=== PATIENT | male | born 1945 | race Caucasian/White ===

== ENCOUNTER → 2020-08-16 | Outpatient (CLI) | payer OTHER ==
--- NOTE | 2020-08-16 15:03 | CT ---
EXAMINATION TYPE: CT abdomen pelvis wo con DATE OF EXAM: 08/16/2020 COMPARISON: None HISTORY: 75 year-old male N39.0, Frequent UTIs CT DLP: 1170.6 mGycm. Automated exposure control for dose reduction was used. TECHNIQUE: Contiguous axial scanning of the abdomen and pelvis without IV contrast. Coronal and sagit stanley reconstructions performed. FINDINGS: Heart is borderline in size. Tiny hiatal hernia. Strandy atelectasis or scarring in the lower lungs. No pleural effusion. Noncontrast appearance of the liver, adrenal glands, spleen, atrophic pancreas show no gross abnormal ity by noncontrast CT. Bile duct is dilated at 1.2 cm with suggestion of mild intrahepatic biliary ductal dilatation as well . This may be secondary to postcholecystectomy status. Numerous cortical lesions within both kidneys, largest on the left measuring 1.6 cm largest on the ri ght measuring 9 mm. These are indeterminate and probably represent cysts. Six-month follow-up CT xiang mmended to ensure stability and exclude any enlarging small solid masses. No dilated small bowel, free fluid, or free air. No mesenteric or retroperitoneal lymphadenopathy. The cecum is [place]. There is mild to moderate stool particularly in the right side of the abdom en. Mid sigmoid diverticulosis without pericolic inflammatory change. Mild circumferential bladder wall thickening. Subtle perivesicular fat stranding. Prostate gland mild ly enlarged at 4.8 cm wide. No abnormal fluid collection pelvis or pelvic lymphadenopathy. Bones: Mild degenerative change of the hips. 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 Advanced hypertrophic facet arthropathy lower lumbar spine with accentuated lumbar lordosis. Gra de 1 anterolisthesis L5-S1 and grade 1 retrolisthesis at both L1-L2 and L4-L5. Moderate to advanced d egenerative disc disease. 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 IMPRESSION: 1. Mild bladder wall thickening with subtle perivesicular fat stranding. Findings may represent unde rlying cystitis. Mild prostatomegaly at 4.8 cm wide. 2. Numerous cortical lesions within both kidneys, largest measuring 1.6 cm on the left and 9 mm on t he right. These likely represent cysts but are indeterminate on this noncontrast study. Recommend 6 m onth follow-up CT to ensure stability. 3. Mid sigmoid diverticulosis without acute diverticulitis. 4. Bile duct dilated at 1.2 cm. This may be chronic in this patient status post cholecystectomy. Cor relate with alkaline phosphatase and bilirubin levels to exclude biliary obstruction. 5. Tiny hiatal hernia. Moderate stool in the right side of the abdomen.
== END ==
LOC: RADCTMAIN 14:12
PROVIDERS: ATTEND Urology
DX: N40.0 Benign prostatic hyperplasia without lower urinary tract symptoms (principal); K57.30 Diverticulosis of large intestine without perforation or abscess without bleeding; K83.8 Other specified diseases of biliary tract; K44.9 Diaphragmatic hernia without obstruction or gangrene; N32.89 Other specified disorders of bladder; N28.89 Other specified disorders of kidney and ureter
CPT/HCPCS: 74176

== ENCOUNTER → 2025-01-20 | Outpatient (CLI) | payer MEDICARE | END | disposition home or self-care (01) | LOC: LABWHC1 15:43 | PROVIDERS: ATTEND Orthopaedic Surgery | DX: Z01.812 Encounter for preprocedural laboratory examination (principal); Z22.322 Carrier or suspected carrier of Methicillin resistant Staphylococcus aureus; M17.0 Bilateral primary osteoarthritis of knee | CPT/HCPCS: 87070 ==